=== PATIENT | male | born 1955 | race Caucasian/White ===

== ENCOUNTER → 2021-01-01 | Outpatient (CLI) | payer OTHER ==
[~2021-01-01] MED LIST: ASPIRIN EC81 MG PO; B12 ACTIVE1000 MCG PO; BENZONATATE100 MG PO; COZAAR 25MG TAB25 MG PO; DOXYCYCLINE HY100 M2 PO; GLUCOPHAGE 850850 MG PO; IMDUR ER TAB 3030 MG PO; JANUVIA100 MG PO; LIPITOR40 MG PO; METFORMIN HCL1000 MG PO; NITROSTAT 0.40.4 MG SL; NITROSTAT0.4 MG SL; NORVASC 5 MG TAB5 MG PO; PLAVIX 75 MG TA75 MG PO; TOPROL XL25 MG PO; TYLENOL 325MG325 MG PO
== END ==
LOC: HEART 5 13:58
DX: I25.5 Ischemic cardiomyopathy (principal); R06.02 Shortness of breath; I08.3 Combined rheumatic disorders of mitral, aortic and tricuspid valves
CPT/HCPCS: 93306